=== PATIENT | female | born 2000 | race Caucasian/White ===

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

== ENCOUNTER 2022-07-07 17:40 | Emergency (ER) | payer BC ==
[2022-07-07] MEDS ORDERED: Prochlorperazine 10 MG/2 ML SDV IM ONE (17:56)
[2022-07-07] MEDS ORDERED: Ketorolac 30 MG/ML SDV IM ONE (17:57)
[2022-07-07] MEDS ORDERED: diphenhydrAMINE 50 MG/ML SDV IM ONE (17:57)
== END 2022-07-07 18:38 | disposition home or self-care (01) ==
LOC: VM.ED 17:40
DX: G43.909 Migraine, unspecified, not intractable, without status migrainosus (principal); Z91.018 Allergy to other foods; Z88.8 Allergy status to other drugs, medicaments and biological substances
CPT/HCPCS: 96372; 99283; J0780; J1200; J1885